=== PATIENT | male | born 1950 ===

== ENCOUNTER 2021-11-27 05:45 | Day surgery (SDC) | payer OTHER ==
[~2021-11-27] VITALS: Ht 167.6 cm; Wt 74.8 kg
[~2021-11-27 05:45] MED LIST: ATORVASTATIN CA40 MG PO; CARV PO; CARVEDILOL12.5 MG; GLUMETZA500 MG PO; SYNTHROID100 MCG PO
== END 2021-11-27 13:55 | disposition home or self-care (01) ==
LOC: CIR.AMB 05:45
PROVIDERS: ATTEND Urology
DX: N47.1 Phimosis (principal); N47.7 Other inflammatory diseases of prepuce; Z20.822 Contact with and (suspected) exposure to COVID-19; E78.5 Hyperlipidemia, unspecified; Z85.118 Personal history of other malignant neoplasm of bronchus and lung; E03.9 Hypothyroidism, unspecified; Z79.84 Long term (current) use of oral hypoglycemic drugs